=== PATIENT | male | born 1995 | race Hispanic/Latino ===

== ENCOUNTER 2025-04-14 21:31 | Emergency (ER) | payer OTHER ==
[~2025-04-14] VITALS: Ht 172.7 cm; Wt 89.8 kg
[2025-04-14] MEDS: LACTATED RINGERS 1000ML 1,000 ML IV ONE (22:10)
[2025-04-14] MEDS: L.E.T. GEL 3ML SYG TP ONE (22:10)
[2025-04-14] MEDS: teTANUS/diphthERIA TOXOID [ADULT] 0.5 ML VIAL IM ONE (22:12)
[2025-04-14 22:14] LABS: BASOPHILS # (AUTO) 0.04 K/uL (0.00-0.20); BASOPHILS % (AUTO) 0.3 % (0.0-5.0); EOSINOPHILS # (AUTO) 0.06 K/uL (0.00-0.70); EOSINOPHILS % (AUTO) 0.5 % (0.0-8.0); HEMATOCRIT 44.1 % (42-54); IMMATURE GRANULOCYTE ABSOLUTE 0.03 K/uL (0-1); LYMPHOCYTES # (AUTO) 1.3 K/uL (1.0-4.8); LYMPHOCYTES % (AUTO) 9.9 % (21.0-51.0); MEAN CORPUSCULAR HEMOGLOBIN 32.9 pg (27.0-33.0); MEAN CORPUSCULAR HGB CONC 35.6 g/dL (32.0-36.0); MEAN CORPUSCULAR VOLUME 92.5 fL (79-99); MONOCYTES # (AUTO) 0.8 K/uL (0.1-1.0); MONOCYTES % (AUTO) 5.8 % (3.0-13.0); NEUTROPHILS # (AUTO) 10.8 K/uL (1.8-7.7); NEUTROPHILS % (AUTO) 83.3 % (40.0-77.0); PLATELET COUNT (AUTO) 240 K/uL (130-400); RED BLOOD CELL COUNT(AUTO) 4.77 MIL/uL (4.50-6.20); RED CELL DISTRIBUTION WIDTH 11.6 % (11.0-15.5)
[2025-04-14 22:23] LABS: CREATININE 0.8 mg/dL (0.5-1.3); POTASSIUM 4.3 mmol/L (3.5-5.1)
--- NOTE | 2025-04-14 22:30 | EKG ---
[facility] Test Date: 2025-04-14 Test Time: 22:26:31 Pat Name: JEFE EDI Department: ED Room: Gender: M Quarter Section Ironer: [facility] : 1995 Requested By: LEMUEL LIZARRAGA Order Number: [id number] Reading MD: Jefe Navarro Measurements Intervals [place] Rate: 64 P: 44 ID: [id number] QRS: 19 QRSD: 110 T: 15 QT: 391 QTc: 405 Interpretive Statements Sinus rhythm ST elev, probable normal early repol pattern No previous ECG available for comparison Electronically Signed On 04-15-2025 18:12:16 CDT by Jefe Navarro Please click the below link to view image of tracing.
[2025-04-14] MEDS: ketOROlac 15MG/ML VIAL (15MG/ML) IV ONE (22:40)
--- NOTE | 2025-04-14 22:43 | ERN ---
General Chief Complaint: Head Injury Stated Complaint: HEAD INJURY WITH LOC Time Seen by MD: 21:38 History of Present Illness Initial Comments 30-year-old male who presents for syncope and head injury. Patient has a prisoner. He was doing herpes, he stood up and felt dizzy. He faint did and fell back. He had the back of his head. No seizure-like activity. He immediately came to. He has a laceration to the back of the head. It is a GCS 15. He denies any other symptoms. Prior to the episode he denies any chest pains palpitations dyspnea or any cardiac type symptoms. He has never had this before. No medical conditions. Allergies: Coded Allergies: No Known Drug Allergies (Unverified Allergy, Unknown, 04/14/25) Past Medical History Past Medical History: No Pertinent History Past Surgical History: None ROS Dictation CONSTITUTIONAL: No chills, no fever, no weakness, no diaphoresis, no malaise. HEAD/FACE: No signs of trauma. EENT: No eye pain, no blurred vision, no tearing, no double vision, no ear pain, no ear discharge, no nose pain, no nasal congestion, no throat pain, no throat swelling, no mouth pain. RESPIRATORY: No cough, no orthopnea, no SOB, no stridor, no wheezing. CARDIOVASCULAR: No chest pain, no edema, no palpitations, no syncope. GASTROINTESTINAL/ABDOMINAL: No abdominal pain, no constipation, no diarrhea, no nausea, no vomiting. GENITOURINARY: No abnormal discharge, no dysuria, no frequent urination, no hematuria. No complaints of pain in the genitals. MUSCULOSKELETAL: No back pain, no gout, no joint pain, no joint swelling, no muscle pain, no muscle stiffness, no neck pain. INTEGUMENTARY: No change in color, no change in hair/nails, no dryness, no lesion, no lumps, no rash. NEUROLOGICAL/PSYCH: Headache head injury HEMATOLOGIC/LYMPHATIC: Not anemic, no history of blood clots, no apparent bleeding, no bruising, glands not swollen. All Systems Negative, Except as Noted. Physical Exam Physical Exam Dictation VITAL SIGNS: Reviewed. GENERAL APPEARANCE: Alert, oriented x3, no acute distress. EYES: PERRL, pink conjunctivas, eyelid no trauma, anterior chamber clear. EARS: Pinnas intact and no signs of trauma or erythema. Ear canals clear and no discharge. TMs no erythema. NOSE: No discharge, no bleeding. OROPHARYNX: Mouth normal, teeth no caries, tongue pink. Pharynx clear, no erythema. Tonsils no exudates, no abscesses noted. Mucous membrane moist. NECK: Supple, non-tender, no thyromegaly, no masses, no JVD, no bruits. BREAST: Deferred. CHEST: No tenderness, no crepitus, no paradoxical movement, no retractions. LUNGS: Clear, well-ventilated, symmetric, no rales, no wheezing, no rhonchi, no stridor, good breath sounds bilaterally. HEART: Regular rate, regular rhythm, no murmur, no gallops. VASCULAR: No peripheral edema. ABDOMEN: Soft, positive bowel sounds, nondistended, no guarding, nontender, no rebound, no masses no hepatomegaly, no splenomegaly, no Rebolledo's sign, no hernias. RECTAL: Deferred. GENITAL: Deferred. NEUROLOGICAL: Normal speech, gross motor function intact, gross sensory function intact. Laceration of the back of the head. MUSCULOSKELETAL: Neck nontender, full range of motion, back nontender, full range of motion. EXTREMITIES: Nontender, full range of motion. SKIN: Color pink, dry, no turgor, no rash, no lacerations, no abrasions, no contusions. LYMPHATICS: Deferred. Results Laboratory and Microbiology Lab and Micro Result Laboratory Tests Test 04/14/25 22:02 White Blood Count 13.0 K/uL (4.8-10.8) H Red Blood Count 4.77 MIL/uL (4.50-6.20) Hemoglobin 15.7 g/dL (14.0-18.0) Hematocrit 44.1 % (42-54) Mean Corpuscular Volume 92.5 fL (79-99) Mean Corpuscular Hemoglobin 32.9 pg (27.0-33.0) Mean Corpuscular Hemoglobin Concent 35.6 g/dL (32.0-36.0) Red Cell Distribution Width 11.6 % (11.0-15.5) Platelet Count 240 K/uL (130-400) Mean Platelet Volume 8.8 fL (7.5-10.5) Immature Granulocyte % (Auto) 0.2 % (0-1) Neutrophils (%) (Auto) 83.3 % (40.0-77.0) H Lymphocytes (%) (Auto) 9.9 % (21.0-51.0) L Monocytes (%) (Auto) 5.8 % (3.0-13.0) Eosinophils (%) (Auto) 0.5 % (0.0-8.0) Basophils (%) (Auto) 0.3 % (0.0-5.0) Neutrophils # (Auto) 10.8 K/uL (1.8-7.7) H Lymphocytes # (Auto) 1.3 K/uL (1.0-4.8) Monocytes # (Auto) 0.8 K/uL (0.1-1.0) Eosinophils # (Auto) 0.06 K/uL (0.00-0.70) Basophils # (Auto) 0.04 K/uL (0.00-0.20) Absolute Immature Granulocyte (auto 0.03 K/uL (0-1) Nucleated Red Blood Cells 0.0 % (0.0-0.19) White Cell Morphology Comment See comments Sodium Level 138 mmol/L (136-145) Potassium Level 4.3 mmol/L (3.5-5.1) Chloride Level 101 mmol/L (101-111) Carbon Dioxide Level 30 mmol/L (21-32) Blood Urea Nitrogen 11 mg/dL (7-18) Creatinine 0.8 mg/dL (0.5-1.3) Glomerular Filtration Rate Calc 124 mL/min (>90) Random Glucose 96 mg/dL (70-105) Total Calcium 10.0 mg/dL (8.5-10.1) MDM CC: Syncope and collapse Historian: Patient Comorbidities: None Limitations by social determinants of health: Current prisoner Differential diagnosis: Arrhythmia, dehydration, syncope, head injury, brain bleed, other. Vital signs are stable on clinical exam Patient does not meet trauma criteria. It is syncopal episode fell and hit the back of his head but he has no neurologic deficits GCS 15 currently. He has a laceration to the back of the head that will need repair. Cardiac exam is unremarkable. EKG shows a normal sinus rhythm, rate 64, normal axis, early R-wave progression, intervals are stable no STEMI. Independently interpreted by me. CT head without contrast (independently interpreted by me): No acute bleed, fractures, major abnormalities. Labs (independently ordered and interpreted by me): Treatment in ED: 1 L of LR. Tetanus updated. Wound of the back ahead was cleaned and repaired. No complications. See the procedure note. No life threats at this time. The syncopal episode I suspect it was due to heat exhaustion due to exercising. There was no signs of arrhythmia, cardiac disease, cardiac back up, neurologic disorder other. Plan will be to discharge with wound care and recommend follow up for staple removal in 10 days. ED Course Orders Procedure Category Date Status Time Ct Head/Brain W/O CT 04/14/25 Taken Contrast 21:40 12 Lead Ekg Tracing- EKG 04/14/25 Complete Technical 21:40 Lactated Ringers PHA 04/14/25 Complete 1000ml (Lactated 22:00 Cbc With Differential LAB 04/14/25 Complete 21:40 Basic Metabolic Panel LAB 04/14/25 Complete 21:40 Tetanus,Diphtheria PHA 04/14/25 Complete Tox [Adult] (Diphther 22:00 L.E.T. Gel 3ml Syg PHA 04/14/25 Complete (L.E.T. Gel 3ml Syg) 22:00 Ketorolac PHA 04/14/25 Complete Tromethamine 15mg/Ml 22:30 Current Medications Medications (Trade) Dose Ordered Sig/Cynthia Route PRN Reason Start Time Stop Time Status Last Admin Dose Admin Ketorolac Tromethamine (toRADol) 15 mg ONCE ONCE IV 04/14/25 22:30 04/14/25 22:31 DC 04/14/25 22:40 Lactated Ringer's 1,000 ml @ 0 mls/hr ONCE ONCE IV 04/14/25 22:00 04/14/25 22:01 DC 04/14/25 22:10 Lidocaine/ Epinephrine (L.e.t. Gel 3ml Syg) 3 ml ONCE ONCE TP 04/14/25 22:00 04/14/25 22:01 DC 04/14/25 22:10 Tetanus/ Diphtheria Toxoids Adsorbed (DiphthERIA-teTANUS TOXOID [ADULT]/ DECAVAC) 0.5 ml ONCE ONCE IM 04/14/25 22:00 04/14/25 22:01 DC 04/14/25 22:12 Vital Signs Date Time Temp Pulse Resp B/P (MAP) Pulse Ox O2 Delivery O2 Flow Rate FiO2 04/14/25 21:35 98.6 57 18 143/83 100 Room Air 0 Laceration/Wound Repair Laceration/Wound Repair : Wound Location: head Wound Length (cm): 8 Wound's Depth, Shape: superficial Wound Explored: clean Irrigated w/ Saline (ccs): 50 Wound Repaired With: ghislaine Number of Sutures: 9 DX & DISP Disposition: Discharge Departure Impression: Primary Impression: Syncope and collapse Additional Impressions: Minor head injury, Scalp laceration Condition: Stable Additional Instructions: You had a syncope and collapse today. Your laceration on the back of your head. The CT scan of your brain is unremarkable. Your EKG is normal. Your blood work (CBC, metabolic panel) is unremarkable. The laceration on the back of her head was cleaned and repaired with nine ghislaine. The ghislaine will need to be removed in 10-14 days. Monitor for any signs of infection. Alternate Tylenol (1000 mg) and ibuprofen (800 mg) every 4 hours as needed for pain or discomfort. These medications are [id number]. Please follow up with a medical provider for a wound check in 72 hours. Return to the emergency department as needed. Referrals: SELF,REFERRAL (PCP) LEMUEL LIZARRAGA DO Apr 14, 2025 22:43
--- NOTE | 2025-04-14 23:00 | NUR ---
LACERATION TO BACK OF HEAD CLOSED WITH [address] LIZARRAGA, PT TOLERATED WELL.
--- NOTE | 2025-04-14 23:18 | HMCIMG ---
CT HEAD/BRAIN W/O CONTRAST HISTORY: Head injury COMPARISON: None TECHNIQUE: Multiple sequential axial images of the head were obtained from the base of the skull through vertex. Patient was not given contrast through intravenous route. FINDINGS: The ventricles and extraventricular CSF spaces are nondilated for patient's age. There is no midline shift, mass effect or herniation. No acute intracranial bleed is seen. Visualized portion of the paranasal sinuses are grossly within normal limits. IMPRESSION: 1. No acute intracranial bleed is seen. CT was performed with one or more following dose reduction techniques: automated exposure control, adjustment of the mA and kv according to patient's size, or use of a iterative reconstruction technique.
[2025-04-14 23:30] VITALS: BP 118/75; PULSE 75; RESP 18; TEMP 98.7; O2SAT 99
== END 2025-04-14 23:41 ==
LOC: EDH 21:31 → EEVIPCON 21:31 → EDH 23:41
DX: S01.01XA Laceration without foreign body of scalp, initial encounter (principal); R55 Syncope and collapse; W18.39XA Other fall on same level, initial encounter; Y93.89 Activity, other specified; Y92.89 Other specified places as the place of occurrence of the external cause; Y99.8 Other external cause status
CPT/HCPCS: 99285; 96374; 70450; 96361; 80048; 85025; 36415; 90714; 90471; 12001; 93005; J1885; J7120